=== PATIENT | female | born 1995 | race African-American/Black ===

== ENCOUNTER 2020-12-12 18:10 | Emergency (ER) | payer OTHER ==
[~2020-12-12] VITALS: Ht 162.6 cm; Wt 77.0 kg
[2020-12-12] MEDS ORDERED: OXYCODONE HCL/ACETAMINOPHEN 5/325MG TABLET PO ONE (18:30)
[2020-12-12] MEDS ORDERED: OXYC-100 MT (19:00)
[2020-12-12] MEDS ORDERED: IBUP-2029 MT (19:00)
[2020-12-12] MEDS ORDERED: ACETAMINOPHEN 325MG TABLET PO ONE (19:15)
[2020-12-12 21:35] VITALS: BP 135/75
== END 2020-12-12 21:36 | disposition home or self-care (01) ==
LOC: ER 18:23
DX: S91.202A Unspecified open wound of left great toe with damage to nail, initial encounter (principal); W55.19XA Other contact with horse, initial encounter; Y93.89 Activity, other specified; Y92.89 Other specified places as the place of occurrence of the external cause; Y99.8 Other external cause status
CPT/HCPCS: 73630; 99283